=== PATIENT | female | born 1925 | race Caucasian/White ===

== ENCOUNTER 2016-08-19 07:27 | Day surgery (SDC) | payer OTHER ==
[~2016-08-19] VITALS: Ht 152.4 cm; Wt 54.4 kg
[~2016-08-19 07:27] MED LIST: ALEVE220 MG PO; ASPIRIN81 M1 PO; ASPIRIN81 M2 PO; CALCIO DEL MAR500 MG PO; CALCIUM 500 +1 EACH PO; CALCIUM 600 MG1 EACH PO; CALTRATE 600600 MG PO; DAILY VITAMIN1 EAC8 PO; FEXOFENADINE H180 MG PO; FOSAMAX70 MG PO; HYDROCHLOROTHIA50 MG PO; IRON325 M1 PO; LISINOPRIL10 MG PO; LO-DOSE ASPIRIN81 M1 PO; MELOXICAM15 MG PO; MULTIVITAMIN1 EAC2 PO; OMEPRAZOLE20 MG PO; PANTOPRAZOLE SO40 MG PO; PENTOXIFYLLINE400 MG PO; PLAVIX75 MG PO; PRAVACHOL40 MG PO; PRAVASTATIN SOD40 MG PO; TRENTAL400 MG PO; TYLENOL REGULA325 MG PO; ZESTRIL,PRINIVI20 MG PO; ZESTRIL20 MG PO
== END 2016-08-19 13:15 | disposition home or self-care (01) ==
LOC: CATH 07:27
DX: I70.221 Atherosclerosis of native arteries of extremities with rest pain, right leg (principal); I70.92 Chronic total occlusion of artery of the extremities; I10 Essential (primary) hypertension; M19.90 Unspecified osteoarthritis, unspecified site
CPT/HCPCS: C1725; C1760; C1769; C1887; C1894; J1644; J2250; J3010; S0020